=== PATIENT | male | born 1935 | race Caucasian/White ===

== ENCOUNTER 2017-08-03 18:58 | Inpatient (IN) | payer MEDICARE, OTHER ==
[~2017-08-03] VITALS: Ht 165.1 cm; Wt 76.7 kg
[2017-08-03] MEDS ORDERED: Morphine Sulfate 2mg/ml Inj IVP ONE (20:15)
[2017-08-03 20:23] LABS: BASOPHILS % (AUTO) 0.9 % (0.0-2.0); EOSINOPHILS % (AUTO) 2.3 % (0.0-3.0); MEAN CORPUSCULAR HEMOGLOBIN 27.5 PG (27.0-31.0); MEAN CORPUSCULAR HGB CONC 31.1 G/DL (32.0-36.0); MEAN CORPUSCULAR VOLUME 89 FL (80-99); MEAN PLATELET VOLUME 7.6 FL (6.5-10.1); MONOCYTES % (AUTO) 4.1 % (1.0-10.0); NEUTROPHILS % (AUTO) 61.8 % (45.0-75.0); PLATELET COUNT 254 K/UL (150-450); RED BLOOD COUNT 4.09 M/UL (4.70-6.10); RED CELL DISTRIBUTION WIDTH 12.1 % (11.6-14.8); WHITE BLOOD COUNT 13.5 K/UL (4.8-10.8)
[2017-08-03 21:13] LABS: ALANINE AMINOTRANSFERASE 18 U/L (12-78); ALBUMIN/GLOBULIN RATIO 0.8 (1.0-2.7); ANION GAP 8 (5-15); ASPARTATE AMINO TRANSFERASE 17 U/L (15-37); CALCIUM 9.6 MG/DL (8.5-10.1); CARBON DIOXIDE 29 MMOL/L (21-32); CHLORIDE 101 MMOL/L (98-107); CKMB 1.1 NG/ML (0.0-3.6); CREATININE 1.7 MG/DL (0.55-1.30); POTASSIUM 3.4 MMOL/L (3.5-5.1); SODIUM 138 MMOL/L (136-145); TOTAL PROTEIN 7.5 G/DL (6.4-8.2)
--- NOTE | 2017-08-03 21:23 | Emergency Room Report ---
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, known LBBB - which he has on today's ECG Allergies: Coded Allergies: No Known Allergies (Verified Allergy, Unknown, 09/04/07) Patient History Past Medical History: DM Past Surgical History: none Pertinent Family History: none Social History: Denies: smoking, alcohol use, drug use Immunizations: UTD Reviewed Nursing Documentation: PMH: Agreed, PSxH: Agreed Nursing Documentation-PMH Past Medical History: No History, Except For Hx Cardiac Problems: Yes - leaking heart valve, 'minor heart attack' per patient Hx Hypertension: No Hx Pacemaker: No Hx Asthma: No Hx COPD: No Hx Diabetes: Yes Hx Gastrointestinal Problems: Yes - GI bleeding Hx Dialysis: No History Of Psychiatric Problem: No Hx Neurological Problems: No Hx Cerebrovascular Accident: No Hx Seizures: No Review of Systems All Other Systems: negative except mentioned in HPI Physical Exam Vital Signs Date Time Temp Pulse Resp B/P (MAP) Pulse Ox O2 Delivery O2 Flow Rate FiO2 08/03/17 19:01 97.3 73 16 107/59 93 Room Air Sp02 EP Interpretation: reviewed, normal General Appearance: normal inspection, well appearing, no apparent distress, alert, GCS 15, non-toxic Head: normocephalic, atraumatic Eyes: bilateral eye PERRL, bilateral eye EOMI ENT: normal ENT inspection, hearing grossly normal, normal voice Neck: normal inspection, full range of motion, supple, no bony tend Respiratory: normal inspection, lungs clear, normal breath sounds, no respiratory distress, no retraction, no wheezing Cardiovascular #1: regular rate, rhythm, no edema Gastrointestinal: normal inspection, normal bowel sounds, non tender, soft, no guarding, no hernia Genitourinary: no CVA tenderness Musculoskeletal: normal inspection, back normal, normal range of motion, Titi' s Sign negative Neurologic: normal inspection, alert, oriented x3, responsive, guide tour III-XII nml as tested, speech normal Psychiatric: normal inspection, judgement/insight normal, mood/affect normal Skin: normal inspection, normal color, no rash Lymphatic: normal inspection Medical Decision Making Medicare Attestation I Leonel Pineda MD hereby attest that the medical record entry for date of service, 08/03/17 accurately reflects signatures/notations that I made in my capacity as MD when I treated/diagnosed the above listed Medicare beneficiary. I attest that this information is true, accurate and complete to the best of my knowledge. I understand that any falsification, omission, or concealment of material fact may subject me to administrative, civil, or criminal liability. This patient warrants hospital admission for extreme of age and has a condition that cannot be treated as outpatient. Diagnostic Impression: Primary Impression: Chest pain Qualified Codes: R07.9 - Chest pain, unspecified Additional Impressions: GABRIELA (acute kidney injury) 1st degree AV block LBBB (left bundle branch block) ER Course 82YOM with DM with chest pain ECG with known 1st degree block, LBBB Given ASA in ED Labs: No leuks. H&H stable. Troponin <0.056 CXR: unchanged from last CXR in 2006 Dr Dominguez PMD/Glass Worker requested admission to Dr Rehan Bah admit for ACS rule out at 943pm EKG Diagnostic Results Rate: normal, other - 1st degree AV block Rhythm: NSR ST Segments: no acute changes ASA given to the pt in ED: Yes Rhythm Strip Diag. Results EP Interpretation: yes Rate: 70 Rhythm: NSR, no PVC's, no ectopy Chest X-Ray Diagnostic Results Chest X-Ray Diagnostic Results : Chest X-Ray Ordered: Yes # of Views/Limited/Complete: 1 View Indication: Chest Pain EP Interpretation: Yes Interpretation: no consolidation, no effusion, no pneumothorax, no acute cardiopulmonary disease, other - unchanged from 2006 Impression: No acute disease Electronically Signed by: Dr Leonel Pineda MD Last Vital Signs Date Time Temp Pulse Resp B/P (MAP) Pulse Ox O2 Delivery O2 Flow Rate FiO2 08/03/17 19:40 73 16 Room Air 08/03/17 19:01 97.3 107/59 93 Status: improved Disposition: ADMITTED INPATIENT Condition: Serious Referrals: FERMIN GRIFFITHS (PCP) LEONEL PINEDA M.D. Aug 03, 2017 21:23
[2017-08-03] MEDS ORDERED: Albuterol/Ipratropium 3ml neb HHN PRN (22:00)
[2017-08-03] MEDS ORDERED: Enalaprilat 2.5mg/2ml Inj IV PRN (22:00)
[2017-08-03] MEDS ORDERED: Morphine Sulfate 2mg/ml Inj IVP PRN (22:00)
[2017-08-03] MEDS ORDERED: Miralax 17gm pkt ORAL PRN (22:00)
[2017-08-03] MEDS ORDERED: Nitroglycerin Subl 0.4mg tab SL PRN (22:00)
[2017-08-03] MEDS ORDERED: dilTIAZem HCl 25mg/5ml Inj IV PRN (22:00)
[2017-08-03] MEDS ORDERED: Ketorolac 30mg Inj IV PRN (22:00)
[2017-08-03] MEDS ORDERED: LIPITOR80 MG ORAL (22:39)
[2017-08-03] MEDS ORDERED: METFORMIN HCL5000 GM MC (22:39)
[2017-08-03] MEDS ORDERED: DIOVAN80 MG ORAL (22:39)
[2017-08-03] MEDS ORDERED: NORVASC2.5 MG ORAL (22:39)
[2017-08-03 23:25] VITALS: BP 122/89
[2017-08-04] VITALS: BP 146/66
[2017-08-04 04:00] VITALS: BP 137/69
[2017-08-04 07:58] LABS: BASOPHILS % (AUTO) 0.4 % (0.0-2.0); EOSINOPHILS % (AUTO) 0.1 % (0.0-3.0); LYMPHOCYTES % (AUTO) 10.6 % (20.0-45.0); MEAN CORPUSCULAR HGB CONC 33.2 G/DL (32.0-36.0); MEAN CORPUSCULAR VOLUME 87 FL (80-99); MEAN PLATELET VOLUME 8.6 FL (6.5-10.1); MONOCYTES % (AUTO) 7.8 % (1.0-10.0); NEUTROPHILS % (AUTO) 81.1 % (45.0-75.0); PLATELET COUNT 242 K/UL (150-450); RED BLOOD COUNT 3.96 M/UL (4.70-6.10); RED CELL DISTRIBUTION WIDTH 12.2 % (11.6-14.8); WHITE BLOOD COUNT 13.3 K/UL (4.8-10.8)
[2017-08-04 08:00] VITALS: BP 124/58
[2017-08-04 08:11] LABS: PROTHROMBIN TIME 10.4 SEC (9.30-11.50)
[2017-08-04 08:28] LABS: CHOLESTEROL 81 MG/DL (< 200); CHOLESTEROL/HDL RATIO 1.5 (3.3-4.4); CRP QUANT 6.3 mg/dL (0.00-0.90); THYROID STIMULATING HORMONE 1.374 uiU/mL (0.360-3.740)
[2017-08-04] MEDS ORDERED: Pneumococcal Vaccine 25mcg/0.5ml IM ONE (09:00)
[2017-08-04] MEDS: Aspirin Baby 81mg ORAL SCH (10:28)
[2017-08-04] MEDS: Heparin 5000 units/ml inj SUBQ SCH ×2 (10:33→21:53)
[2017-08-04 12:00] VITALS: BP 116/55
--- NOTE | 2017-08-04 12:40 | Diagnostic Imaging Report ---
Indication: Chest pain Comparison: 10/07/2007 A single view chest radiograph was obtained. Findings: The heart is enlarged. There is an azygos fissure noted. Reticular densities are prominent at the lung bases likely atelectasis. No compelling evidence of pneumonia or pulmonary edema. Bones are osteopenic. Impression: Some prominence of the basilar interstitium nonspecific. Cardiomegaly
--- NOTE | 2017-08-04 12:42 | Consultation ---
History of Present Illness General Date patient seen: Aug 04, 2017 Chief Complaint: Chest Pain Present Illness HPI 82 year old male with hx of DM, HTN, came to the ED with c/o chest pain, pt states that he has been having pressure in the sternal region of his chest for the past four hours and that the pain radiates to his back. Pt is A/ox4, vital signs sable and no distress noted. Pt is admitted to telemetry for further work up. Allergies: Coded Allergies: No Known Allergies (Verified Allergy, Unknown, 09/04/07) Medication History Scheduled Amlodipine Besylate (Norvasc), 2.5 MG ORAL DAILY, (Reported) Atorvastatin (Lipitor), 80 MG ORAL BEDTIME, (Reported) Valsartan (Diovan), 80 MG ORAL DAILY, (Reported) Miscellaneous Medications Metformin Hcl (Metformin Hcl), 5,000 GM MC, (Reported) Patient History Healthcare decision maker Resuscitation status Full Code Advanced Directive on File No Past Medical/Surgical History Past Medical/Surgical History: (1) Hypertension (2) Diabetes mellitus Review of Systems All Other Systems: negative except mentioned in HPI Physical Exam General Appearance: WD/WN Lines, tubes and drains: peripheral HEENT: normocephalic, atraumatic Neck: non-tender, normal alignment Respiratory/Chest: chest wall non-tender, lungs clear Breasts: no masses Cardiovascular/Chest: normal rate, regular rhythm Genitourinary/Rectal: normal genital exam Last 24 Hour Vital Signs Date Time Temp Pulse Resp B/P (MAP) Pulse Ox O2 Delivery O2 Flow Rate FiO2 08/04/17 09:47 64 18 Room Air 21 08/04/17 08:00 98.0 69 19 124/58 91 Room Air 08/04/17 08:00 66 08/04/17 04:00 98.2 74 18 137/69 91 Room Air 08/04/17 04:00 91 08/04/17 00:00 97.3 76 18 146/66 93 Room Air 08/03/17 23:25 97.3 88 20 122/89 100 Room Air 08/03/17 23:25 88 20 122/89 100 Room Air 08/03/17 19:40 73 16 Room Air 08/03/17 19:01 97.3 73 16 107/59 93 Room Air Laboratory Tests Test 08/03/17 19:30 08/04/17 06:40 White Blood Count 13.5 K/UL (4.8-10.8) H 13.3 K/UL (4.8-10.8) H Red Blood Count 4.09 M/UL (4.70-6.10) L 3.96 M/UL (4.70-6.10) L Hemoglobin 11.3 G/DL (14.2-18.0) L 11.5 G/DL (14.2-18.0) L Hematocrit 36.2 % (42.0-52.0) L 34.6 % (42.0-52.0) L Mean Corpuscular Volume 89 FL (80-99) 87 FL (80-99) Mean Corpuscular Hemoglobin 27.5 PG (27.0-31.0) 29.0 PG (27.0-31.0) Mean Corpuscular Hemoglobin Concent 31.1 G/DL (32.0-36.0) L 33.2 G/DL (32.0-36.0) Red Cell Distribution Width 12.1 % (11.6-14.8) 12.2 % (11.6-14.8) Platelet Count 254 K/UL (150-450) 242 K/UL (150-450) Mean Platelet Volume 7.6 FL (6.5-10.1) 8.6 FL (6.5-10.1) Neutrophils (%) (Auto) 61.8 % (45.0-75.0) 81.1 % (45.0-75.0) H Lymphocytes (%) (Auto) 31.0 % (20.0-45.0) 10.6 % (20.0-45.0) L Monocytes (%) (Auto) 4.1 % (1.0-10.0) 7.8 % (1.0-10.0) Eosinophils (%) (Auto) 2.3 % (0.0-3.0) 0.1 % (0.0-3.0) Basophils (%) (Auto) 0.9 % (0.0-2.0) 0.4 % (0.0-2.0) Sodium Level 138 MMOL/L (136-145) Potassium Level 3.4 MMOL/L (3.5-5.1) L Chloride Level 101 MMOL/L (98-107) Carbon Dioxide Level 29 MMOL/L (21-32) Anion Gap 8 (5-15) Blood Urea Nitrogen 35 mg/dL (7-18) H Creatinine 1.7 MG/DL (0.55-1.30) H Estimat Glomerular Filtration Rate mL/min (>60) Glucose Level 220 MG/DL (74-106) H Calcium Level 9.6 MG/DL (8.5-10.1) Total Bilirubin 0.5 MG/DL (0.2-1.0) Aspartate Amino Transf (AST/SGOT) 17 U/L (15-37) Alanine Aminotransferase (ALT/SGPT) 18 U/L (12-78) Alkaline Phosphatase 44 U/L (46-116) L Total Creatine Kinase 76 U/L (26-308) Creatine Kinase MB 1.1 NG/ML (0.0-3.6) Creatine Kinase MB Relative Index 1.4 Troponin I 0.017 ng/mL (0.000-0.056) 0.003 ng/mL (0.000-0.056) Pro-B-Type Natriuretic Peptide 449 (0-125) H Total Protein 7.5 G/DL (6.4-8.2) Albumin 3.4 G/DL (3.4-5.0) Globulin 4.1 g/dL Albumin/Globulin Ratio 0.8 (1.0-2.7) L Prothrombin Time 10.4 SEC (9.30-11.50) Prothromb Time International Ratio 1.0 (0.9-1.1) Activated Partial Thromboplast Time 34 SEC (23-33) H C-Reactive Protein, Quantitative 6.3 mg/dL (0.00-0.90) H Triglycerides Level 55 MG/DL (0-200) Cholesterol Level 81 MG/DL (< 200) LDL Cholesterol 24 mg/dL (<100) HDL Cholesterol 54 MG/DL (40-60) Cholesterol/HDL Ratio 1.5 (3.3-4.4) L Thyroid Stimulating Hormone (TSH) 1.374 uiU/mL (0.360-3.740) Height (Feet): 5 Height (Inches): 5.00 Weight (Pounds): 169 Medications Current Medications Medications (Trade) Dose Ordered Sig/Tyrell Route PRN Reason Start Time Stop Time Status Last Admin Dose Admin Acetaminophen (Tylenol) 650 mg Q4H PRN ORAL FEVER 08/03/17 22:00 09/02/17 21:59 Albuterol/ Ipratropium (DuoNeb 0.5-3(2.5)mg/3ml) 3 ml Q4H PRN HHN Shortness of Breath 08/03/17 22:00 08/08/17 21:59 Aspirin (ASA) 162 mg DAILY ORAL 08/04/17 09:00 09/03/17 08:59 08/04/17 10:28 Diltiazem HCl (Cardizem) 10 mg Q1H PRN IV heart rate more than 120, 08/03/17 22:00 09/02/17 21:59 Enalaprilat (Vasotec) 2.5 mg Q6H PRN IV sbp more than 160 08/03/17 22:00 09/02/17 21:59 Heparin Sodium (Porcine) (Heparin 5000 units/ml) 5,000 units EVERY 12 HOURS SUBQ 08/04/17 09:00 09/03/17 08:59 08/04/17 10:33 Ketorolac Tromethamine (Toradol 30mg) 30 mg Q6H PRN IV moderate pain ( 4-6) 08/03/17 22:00 08/08/17 21:59 Morphine Sulfate (Morphine Sulfate) 2 mg Q4H PRN IVP severe Pain (Pain Scale 7-10) 08/03/17 22:00 08/10/17 21:59 Nitroglycerin (Ntg) 0.4 mg Q5M PRN SL Prn Chest Pain 08/03/17 22:00 09/02/17 21:59 Ondansetron HCl (Zofran) 4 mg Q6H PRN IVP Nausea & Vomiting 08/03/17 22:00 09/02/17 21:59 Pneumococcal Polyvalent Vaccine (Pneumovax) 0.5 ml ONCE ONCE IM 08/04/17 09:00 08/04/17 09:01 UNV Polyethylene Glycol (Miralax) 17 gm DAILYPRN PRN ORAL Constipation 08/03/17 22:00 09/02/17 21:59 Temazepam (Restoril) 15 mg HSPRN PRN ORAL Insomnia 08/03/17 22:00 08/10/17 21:59 Assessment/Plan Problem List: (1) ACS (acute coronary syndrome) ICD Codes: I24.9 - Acute ischemic heart disease, unspecified SNOMED: 259782163 (2) ATN (acute tubular necrosis) ICD Codes: N17.0 - Acute kidney failure with tubular necrosis SNOMED: 71075161 (3) Anemia ICD Codes: D64.9 - Anemia, unspecified SNOMED: 202277981 Assessment/Plan serial ekg, troponin echo cardio to see anemia and renal w/u symptomatic treatment. SAMANTHA ABRAMS Aug 04, 2017 12:42
[2017-08-04 13:09] LABS: URIC ACID 7.5 MG/DL (2.6-7.2)
[2017-08-04 13:15] LABS: IRON 54 ug/dL (50-175); LACTATE DEHYDROGENASE 157 U/L (135-225); TOTAL IRON BINDING CAPACITY 297 ug/dL (250-450)
[2017-08-04 14:04] LABS: BAND NEUTROPHILS % (MANUAL) 0 % (0-8); BASOPHILS % (MANUAL) 0 % (0-2); EOSINOPHILS % (MANUAL) 0 % (0-3); LYMPHOCYTES % (MANUAL) 12 % (20-45); NEUTROPHILS % (MANUAL) 79 % (45-75); PLATELET ESTIMATE ADEQUATE; PLATELET MORPHOLOGY NORMAL; TOTAL CELLS COUNTED 100
[2017-08-04 14:05] LABS: PATH BLOOD SMEAR/OMC SEND TO PATHOLOGIST
[2017-08-04 14:07] LABS: RETICULOCYTE COUNT 0.6 % (0.0-2.0)
[2017-08-04 14:14] LABS: ERYTHROCYTE SEDIMENTATION RATE 54 MM/HR (0-30)
[2017-08-04 16:00] VITALS: BP 131/69
--- NOTE | 2017-08-04 17:38 | Infectious Diseases Prog Note ---
Assessment/Plan Problems: (1) CAP (community acquired pneumonia) Assessment & Plan: with interstitial infiltrates, will start ceftriaxon and zithromax empirically (2) Leukocytosis Assessment & Plan: suspect due to pneumonia , will start ceftriaxon and zithromax, and send blood culture (3) Chest pain Assessment & Plan: rule out ACS, cardiology is following (4) GABRIELA (acute kidney injury) Assessment & Plan: rule out dehydration, continue IVF, monitor renal function (5) Diabetes mellitus Assessment & Plan: recommend tight glycemic control, to keep blood glucose, between 80-130 Subjective Allergies: Coded Allergies: No Known Allergies (Verified Allergy, Unknown, 09/04/07) Objective Vital Signs Last 24 Hour Vital Signs Date Time Temp Pulse Resp B/P (MAP) Pulse Ox O2 Delivery O2 Flow Rate FiO2 08/04/17 16:00 97.2 79 20 131/69 91 Room Air 08/04/17 16:00 65 08/04/17 12:00 97.6 66 21 116/55 91 Room Air 08/04/17 12:00 64 08/04/17 09:47 64 18 Room Air 21 08/04/17 08:00 98.0 69 19 124/58 91 Room Air 08/04/17 08:00 66 08/04/17 04:00 98.2 74 18 137/69 91 Room Air 08/04/17 04:00 91 08/04/17 00:00 97.3 76 18 146/66 93 Room Air 08/03/17 23:25 97.3 88 20 122/89 100 Room Air 08/03/17 23:25 88 20 122/89 100 Room Air 08/03/17 19:40 73 16 Room Air 08/03/17 19:01 97.3 73 16 107/59 93 Room Air Height (Feet): 5 Height (Inches): 5.00 Weight (Pounds): 169 Laboratory Tests Test 08/03/17 19:30 08/04/17 06:40 White Blood Count 13.5 K/UL (4.8-10.8) H 13.3 K/UL (4.8-10.8) H Red Blood Count 4.09 M/UL (4.70-6.10) L 3.96 M/UL (4.70-6.10) L Hemoglobin 11.3 G/DL (14.2-18.0) L 11.5 G/DL (14.2-18.0) L Hematocrit 36.2 % (42.0-52.0) L 34.6 % (42.0-52.0) L Mean Corpuscular Volume 89 FL (80-99) 87 FL (80-99) Mean Corpuscular Hemoglobin 27.5 PG (27.0-31.0) 29.0 PG (27.0-31.0) Mean Corpuscular Hemoglobin Concent 31.1 G/DL (32.0-36.0) L 33.2 G/DL (32.0-36.0) Red Cell Distribution Width 12.1 % (11.6-14.8) 12.2 % (11.6-14.8) Platelet Count 254 K/UL (150-450) 242 K/UL (150-450) Mean Platelet Volume 7.6 FL (6.5-10.1) 8.6 FL (6.5-10.1) Neutrophils (%) (Auto) 61.8 % (45.0-75.0) 81.1 % (45.0-75.0) H Lymphocytes (%) (Auto) 31.0 % (20.0-45.0) 10.6 % (20.0-45.0) L Monocytes (%) (Auto) 4.1 % (1.0-10.0) 7.8 % (1.0-10.0) Eosinophils (%) (Auto) 2.3 % (0.0-3.0) 0.1 % (0.0-3.0) Basophils (%) (Auto) 0.9 % (0.0-2.0) 0.4 % (0.0-2.0) Sodium Level 138 MMOL/L (136-145) Potassium Level 3.4 MMOL/L (3.5-5.1) L Chloride Level 101 MMOL/L (98-107) Carbon Dioxide Level 29 MMOL/L (21-32) Anion Gap 8 (5-15) Blood Urea Nitrogen 35 mg/dL (7-18) H Creatinine 1.7 MG/DL (0.55-1.30) H Estimat Glomerular Filtration Rate mL/min (>60) Glucose Level 220 MG/DL (74-106) H Calcium Level 9.6 MG/DL (8.5-10.1) Total Bilirubin 0.5 MG/DL (0.2-1.0) Aspartate Amino Transf (AST/SGOT) 17 U/L (15-37) Alanine Aminotransferase (ALT/SGPT) 18 U/L (12-78) Alkaline Phosphatase 44 U/L (46-116) L Total Creatine Kinase 76 U/L (26-308) 83 U/L (26-308) Creatine Kinase MB 1.1 NG/ML (0.0-3.6) Creatine Kinase MB Relative Index 1.4 Troponin I 0.017 ng/mL (0.000-0.056) 0.003 ng/mL (0.000-0.056) Pro-B-Type Natriuretic Peptide 449 (0-125) H Total Protein 7.5 G/DL (6.4-8.2) Albumin 3.4 G/DL (3.4-5.0) Globulin 4.1 g/dL Albumin/Globulin Ratio 0.8 (1.0-2.7) L Differential Total Cells Counted 100 Neutrophils % (Manual) 79 % (45-75) H Lymphocytes % (Manual) 12 % (20-45) L Monocytes % (Manual) 9 % (1-10) Eosinophils % (Manual) 0 % (0-3) Basophils % (Manual) 0 % (0-2) Band Neutrophils 0 % (0-8) Platelet Estimate Adequate Platelet Morphology Normal Erythrocyte Sedimentation Rate 54 MM/HR (0-30) H Reticulocyte Count 0.6 % (0.0-2.0) Prothrombin Time 10.4 SEC (9.30-11.50) Prothromb Time International Ratio 1.0 (0.9-1.1) Activated Partial Thromboplast Time 34 SEC (23-33) H Uric Acid 7.5 MG/DL (2.6-7.2) H Iron Level 54 ug/dL (50-175) Total Iron Binding Capacity 297 ug/dL (250-450) Percent Iron Saturation 18 % (15-50) Unsaturated Iron Binding 243 ug/dL (112-346) Lactate Dehydrogenase 157 U/L (135-225) C-Reactive Protein, Quantitative 6.3 mg/dL (0.00-0.90) H Triglycerides Level 55 MG/DL (0-200) Cholesterol Level 81 MG/DL (< 200) LDL Cholesterol 24 mg/dL (<100) HDL Cholesterol 54 MG/DL (40-60) Cholesterol/HDL Ratio 1.5 (3.3-4.4) L Carcinoembryonic Antigen Pending Vitamin B12 Level Pending Folate Pending Thyroid Stimulating Hormone (TSH) 1.374 uiU/mL (0.360-3.740) Current Medications Medications (Trade) Dose Ordered Sig/Tyrell Route PRN Reason Start Time Stop Time Status Last Admin Dose Admin Acetaminophen (Tylenol) 650 mg Q4H PRN ORAL FEVER 08/03/17 22:00 09/02/17 21:59 Albuterol/ Ipratropium (DuoNeb 0.5-3(2.5)mg/3ml) 3 ml Q4H PRN HHN Shortness of Breath 08/03/17 22:00 08/08/17 21:59 Aspirin (ASA) 162 mg DAILY ORAL 08/04/17 09:00 09/03/17 08:59 08/04/17 10:28 Diltiazem HCl (Cardizem) 10 mg Q1H PRN IV heart rate more than 120, 08/03/17 22:00 09/02/17 21:59 Enalaprilat (Vasotec) 2.5 mg Q6H PRN IV sbp more than 160 08/03/17 22:00 09/02/17 21:59 Heparin Sodium (Porcine) (Heparin 5000 units/ml) 5,000 units EVERY 12 HOURS SUBQ 08/04/17 09:00 09/03/17 08:59 08/04/17 10:33 Ketorolac Tromethamine (Toradol 30mg) 30 mg Q6H PRN IV moderate pain ( 4-6) 08/03/17 22:00 08/08/17 21:59 Morphine Sulfate (Morphine Sulfate) 2 mg Q4H PRN IVP severe Pain (Pain Scale 7-10) 08/03/17 22:00 08/10/17 21:59 Nitroglycerin (Ntg) 0.4 mg Q5M PRN SL Prn Chest Pain 08/03/17 22:00 09/02/17 21:59 Ondansetron HCl (Zofran) 4 mg Q6H PRN IVP Nausea & Vomiting 08/03/17 22:00 09/02/17 21:59 Polyethylene Glycol (Miralax) 17 gm DAILYPRN PRN ORAL Constipation 08/03/17 22:00 09/02/17 21:59 Temazepam (Restoril) 15 mg HSPRN PRN ORAL Insomnia 08/03/17 22:00 08/10/17 21:59 Madan Harley M.D. Aug 04, 2017 17:38
[2017-08-04] MEDS: Azithromycin 250mg tab ORAL SCH (18:09)
[2017-08-04] MEDS: cefTRIAXone 2 GM in D5W 110 ML IVPB SCH (18:54)
[2017-08-04 20:00] VITALS: BP 119/61
[2017-08-04] MEDS ORDERED: MULTIVITAMINS1 EAC2 ORAL (22:13)
[2017-08-04] MEDS ORDERED: CALCI-CHEW500 MG PO (22:13)
[2017-08-04] MEDS ORDERED: METFORMIN HCL500 M1 ORAL (22:13)
[2017-08-04] MEDS ORDERED: OMEGA 3 1,0001 EACH PO (22:13)
[2017-08-04] MEDS ORDERED: DIOVAN HCT 1601 EACH ORAL (22:13)
[2017-08-04] MEDS ORDERED: NORVASC5 MG ORAL (22:13)
[2017-08-04] MEDS ORDERED: MAGNESIUM250 M2 PO (22:13)
[2017-08-04] MEDS ORDERED: ATORVASTATIN CA20 MG ORAL (22:13)
--- NOTE | 2017-08-04 22:30 | Cardiology Progress Note ---
Assessment/Plan Assessment/Plan The patient is seen and examined, full consult note will be dictated shortly. Objective Last 24 Hour Vital Signs Date Time Temp Pulse Resp B/P (MAP) Pulse Ox O2 Delivery O2 Flow Rate FiO2 08/04/17 21:37 70 20 Room Air 21 08/04/17 20:00 98.1 70 20 119/61 93 Room Air 08/04/17 16:00 97.2 79 20 131/69 91 Room Air 08/04/17 16:00 65 08/04/17 12:00 97.6 66 21 116/55 91 Room Air 08/04/17 12:00 64 08/04/17 09:47 64 18 Room Air 21 08/04/17 08:00 98.0 69 19 124/58 91 Room Air 08/04/17 08:00 66 08/04/17 04:00 98.2 74 18 137/69 91 Room Air 08/04/17 04:00 91 08/04/17 00:00 97.3 76 18 146/66 93 Room Air 08/03/17 23:25 97.3 88 20 122/89 100 Room Air 08/03/17 23:25 88 20 122/89 100 Room Air Intake and Output 08/04/17 08/05/17 19:00 07:00 Intake Total 680 ml Balance 680 ml Intake Oral 580 ml Other 100 ml # Voids 2 Laboratory Tests Test 08/04/17 06:40 White Blood Count 13.3 K/UL (4.8-10.8) H Red Blood Count 3.96 M/UL (4.70-6.10) L Hemoglobin 11.5 G/DL (14.2-18.0) L Hematocrit 34.6 % (42.0-52.0) L Mean Corpuscular Volume 87 FL (80-99) Mean Corpuscular Hemoglobin 29.0 PG (27.0-31.0) Mean Corpuscular Hemoglobin Concent 33.2 G/DL (32.0-36.0) Red Cell Distribution Width 12.2 % (11.6-14.8) Platelet Count 242 K/UL (150-450) Mean Platelet Volume 8.6 FL (6.5-10.1) Neutrophils (%) (Auto) 81.1 % (45.0-75.0) H Lymphocytes (%) (Auto) 10.6 % (20.0-45.0) L Monocytes (%) (Auto) 7.8 % (1.0-10.0) Eosinophils (%) (Auto) 0.1 % (0.0-3.0) Basophils (%) (Auto) 0.4 % (0.0-2.0) Differential Total Cells Counted 100 Neutrophils % (Manual) 79 % (45-75) H Lymphocytes % (Manual) 12 % (20-45) L Monocytes % (Manual) 9 % (1-10) Eosinophils % (Manual) 0 % (0-3) Basophils % (Manual) 0 % (0-2) Band Neutrophils 0 % (0-8) Platelet Estimate Adequate Platelet Morphology Normal Erythrocyte Sedimentation Rate 54 MM/HR (0-30) H Reticulocyte Count 0.6 % (0.0-2.0) Prothrombin Time 10.4 SEC (9.30-11.50) Prothromb Time International Ratio 1.0 (0.9-1.1) Activated Partial Thromboplast Time 34 SEC (23-33) H Uric Acid 7.5 MG/DL (2.6-7.2) H Iron Level 54 ug/dL (50-175) Total Iron Binding Capacity 297 ug/dL (250-450) Percent Iron Saturation 18 % (15-50) Unsaturated Iron Binding 243 ug/dL (112-346) Lactate Dehydrogenase 157 U/L (135-225) Total Creatine Kinase 83 U/L (26-308) Troponin I 0.003 ng/mL (0.000-0.056) C-Reactive Protein, Quantitative 6.3 mg/dL (0.00-0.90) H Triglycerides Level 55 MG/DL (0-200) Cholesterol Level 81 MG/DL (< 200) LDL Cholesterol 24 mg/dL (<100) HDL Cholesterol 54 MG/DL (40-60) Cholesterol/HDL Ratio 1.5 (3.3-4.4) L Carcinoembryonic Antigen Pending Vitamin B12 Level Pending Folate Pending Thyroid Stimulating Hormone (TSH) 1.374 uiU/mL (0.360-3.740) FERMIN GRIFFITHS Aug 04, 2017 22:30
--- NOTE | 2017-08-04 23:45 | Consultation ---
DATE OF CONSULTATION: 08/04/2017 INFECTIOUS DISEASE CONSULTATION CONSULTING PHYSICIAN: Madan Harley M.D. REQUESTING PHYSICIAN: Walter Van D.O. REASON FOR CONSULTATION: Leukocytosis with pneumonia, recommendation for antibiotic therapy. HISTORY OF PRESENT ILLNESS: The patient is an 82-year-old male with past medical history of diabetes, cardiac disease, and GI bleeding, presented to [facility] with chest pain radiating to his shoulders at rest. His chest pain is 8/10, radiates to his shoulder, gets worse with movement and deep breathing, gets better with pain medication and rest. Never had any previous history of chest pain. No trauma to the chest. The patient was found to have significant leukocytosis and interstitial pulmonary infiltration on his chest x-ray suspicious for pneumonia. So, I was consulted by the primary provider for antibiotics treatment and further management. The patient denied any fever or chills. He had a cough with no phlegm. No shortness of breath, but chest pain. No headache or blurry vision. No recent upper respiratory infection. PAST MEDICAL HISTORY: Significant for diabetes, coronary artery disease, heart valve disease, conduction abnormality, and GI bleeding. PAST SURGICAL HISTORY: Negative. ALLERGIES: He has no known drug allergy. MEDICATIONS: The patient is on aspirin, heparin, DuoNeb, nitroglycerin, Tylenol, Toradol, morphine, MiraLAX, Zofran, Restoril, Vasotec and Cardizem. SOCIAL HISTORY: The patient lives with family. Denies using any drugs, tobacco, or alcohol. FAMILY HISTORY: Not contributory. REVIEW OF SYSTEMS: Fourteen points of system review were all negative apart from the one I mentioned above in my H and P. PHYSICAL EXAMINATION: VITAL SIGNS: Temperature 97.7 degrees, pulse 64, respirations 21, blood pressure 116/65, and saturation 91% on room air. GENERAL: An elderly male, lying in bed, awake, alert, and not in distress. HEENT: Normocephalic and atraumatic. Pupils are reactive to light. Moist oral mucosa. No exudate. NECK: Supple. No lymphadenopathy. CARDIOVASCULAR: Regular rate and rhythm. No murmur. LUNGS: He had crackles. Diminished breathing sounds at the bases. Normal breathing effort. ABDOMEN: Soft, nontender, and nondistended. Positive bowel sounds. No hepatosplenomegaly or ascites. EXTREMITIES: No edema or cyanosis. SKIN: No rash. No hives. LABORATORY AND DIAGNOSTIC DATA: Labs showed white count of 13.3, hemoglobin of 11.5, and platelet count of 242,000. Sedimentation rate of 54. BUN of 35 and creatinine 1.7. AST of 17. Imaging, chest x-ray showed prominence of the basilar interstitium, cardiomegaly, reticular densities prominent at the lung bases. ASSESSMENT AND RECOMMENDATION: 1. Community-acquired pneumonia with interstitial infiltration. We will start the patient empirically on ceftriaxone and Zithromax. Monitor his chest x-ray. 2. Leukocytosis, suspect due to pneumonia. We will start ceftriaxone and Zithromax and send blood culture to rule out sepsis. 3. Chest pain, rule out acute coronary syndrome. Cardiology is following. 4. Acute renal failure, rule out dehydration related. Continue fluid. Monitor renal function. 5. Diabetes. Recommend tight glycemic control to keep blood glucose between 80 to 130. Thank you for the consult. Madan Harley M.D. DR: VAN JOB#: [id number] CC:
[2017-08-05] VITALS: BP 149/73
--- NOTE | 2017-08-05 | History and Physical Report ---
DATE OF ADMISSION: 08/03/2017 TIME SEEN: At 2 p.m. ATTENDING PHYSICIAN: Walter Van D.O. CONSULTANTS: 1. Franc Coleman M.D. 2. Garrett Jacobs M.D. 3. Tatiana Milligan M.D. CHIEF COMPLAINT: Chest pain, weakness, and dizziness. BRIEF HISTORY: This is an 82-year-old male who lives at home and presents with substernal chest pain, radiation to bilateral shoulder, slight dizziness, and weak. No shortness of breath. The patient came to the [facility] and diagnosed with chest pain, left bundle-branch block, and first-degree AV block. The patient was admitted to telemetry for further care. Currently, feeling little bit better in bed, no complaints. PAST MEDICAL HISTORY: Includes diabetes type 2, ATN, left bundle-branch block, hypertension, and anemia. PAST SURGICAL HISTORY: None. MEDICATIONS: Include aspirin, heparin, nitroglycerin, Tylenol, Toradol, morphine, MiraLAX, Zofran, Restoril, and Vasotec. ALLERGIES: Denies. SOCIAL HISTORY: No smoking, no alcohol, and no intravenous drug abuse. FAMILY HISTORY: Noncontributory. REVIEW OF SYSTEMS: Slight chest pain. Slight shortness of breath. No nausea, vomiting, or diarrhea. PHYSICAL EXAMINATION: GENERAL: Calm in bed, oriented x3, and in no acute distress. VITAL SIGNS: Showed temperature 97, pulse 64, respirations 21, and blood pressure 116/55. CARDIOVASCULAR SYSTEM: No murmur. LUNGS: Distant and clear. ABDOMEN: Bowel sounds positive. Nontender and nondistended. EXTREMITIES: No cyanosis, clubbing, or edema. NEUROLOGIC: The patient moves all extremities. Slightly weak. LABORATORY DATA: Laboratories at this time show white count 13, hemoglobin and hematocrit 11.5/34, and platelets 242,000. 7.5. Troponin 0.03. INR 1.0 and PTT 34. ASSESSMENT: 1. Chest pain. 2. Left bundle-branch block. 3. Hypokalemia. 4. Slight dizziness. 5. Leukocytosis. 6. Hypertension. 7. Anemia. 8. Acute tubular necrosis. PLAN: 1. Continue premedications. 2. Troponin q.8 h. x3. 3. O2 and pulmonary treatment. 4. Antibiotics per infectious diseases. 5. Resume home medications. 6. Blood pressure and blood sugar control. 7. OT, PT, and dietary evaluation. 8. CBC and BMP in the morning. 9. Dr. Coleman, Dr. Jacobs, Dr. Milligan to consult. 10. We will continue to follow this patient. Walter Van D.O. DR: AUDREY JOB#: [id number] CC:
[2017-08-05 02:47] LABS: FOLIC ACID 72.2 NG/ML (3.1-17.5)
[2017-08-05 04:00] VITALS: BP 133/71
[2017-08-05 08:00] VITALS: BP 124/78
[2017-08-05] MEDS: Aspirin Baby 81mg ORAL SCH (08:49)
[2017-08-05] MEDS: Azithromycin 250mg tab ORAL SCH (08:50)
[2017-08-05] MEDS: Heparin 5000 units/ml inj SUBQ SCH ×2 (08:55→21:56)
--- NOTE | 2017-08-05 10:38 | General Progress Note ---
Assessment/Plan Problem List: (1) LBBB (left bundle branch block) ICD Codes: I44.7 - Left bundle-branch block, unspecified SNOMED: 75081496 (2) Chest pain ICD Codes: R07.9 - Chest pain, unspecified SNOMED: 53958019 Qualifiers: Qualified Codes: R07.9 - Chest pain, unspecified (3) GABRIELA (acute kidney injury) ICD Codes: N17.9 - Acute kidney failure, unspecified SNOMED: 05487009 (4) 1st degree AV block ICD Codes: I44.0 - Atrioventricular block, first degree SNOMED: 900159878 (5) Diabetes mellitus ICD Codes: E11.9 - Type 2 diabetes mellitus without complications SNOMED: 93533749 (6) Hypertension ICD Codes: I10 - Essential (primary) hypertension SNOMED: 24600079 (7) Anemia ICD Codes: D64.9 - Anemia, unspecified SNOMED: 232981195 (8) ATN (acute tubular necrosis) ICD Codes: N17.0 - Acute kidney failure with tubular necrosis SNOMED: 10741799 (9) ACS (acute coronary syndrome) ICD Codes: I24.9 - Acute ischemic heart disease, unspecified SNOMED: 428130382 (10) Leukocytosis ICD Codes: D72.829 - Elevated white blood cell count, unspecified SNOMED: 323486275, 742215983 (11) CAP (community acquired pneumonia) ICD Codes: J18.9 - Pneumonia, unspecified organism SNOMED: 841107319 Status: stable, progressing, tolerating diet Assessment/Plan ot pt diet cardio eval cbc bmp am Subjective Constitutional: Reports: weakness Allergies: Coded Allergies: No Known Allergies (Verified Allergy, Unknown, 09/04/07) All Systems: reviewed and negative except above Subjective sleepy in bed Objective Last 24 Hour Vital Signs Date Time Temp Pulse Resp B/P (MAP) Pulse Ox O2 Delivery O2 Flow Rate FiO2 08/05/17 10:33 68 08/05/17 08:00 97.5 68 20 124/78 99 Room Air 08/05/17 04:00 97.0 80 20 133/71 88 Room Air 08/05/17 04:00 78 08/05/17 00:00 78 08/05/17 00:00 98.1 80 22 149/73 90 Room Air 08/04/17 21:37 70 20 Room Air 21 08/04/17 20:00 98.1 70 20 119/61 93 Room Air 08/04/17 20:00 74 08/04/17 16:00 97.2 79 20 131/69 91 Room Air 08/04/17 16:00 65 08/04/17 12:00 97.6 66 21 116/55 91 Room Air 08/04/17 12:00 64 Height (Feet): 5 Height (Inches): 5.00 Weight (Pounds): 169 General Appearance: lethargic EENT: normal ENT inspection Neck: normal alignment Cardiovascular: normal peripheral pulses, normal rate, regular rhythm Respiratory/Chest: chest wall non-tender, lungs clear, normal breath sounds Abdomen: normal bowel sounds, non tender, soft Extremities: normal inspection Edema: no edema noted Arm (L), no edema noted Arm (R), no edema noted Leg (L), no edema noted Leg (R), no edema noted Pedal (L), no edema noted Pedal (R), no edema noted Generalized Neurologic: responsive, motor weakness Skin: normal pigmentation, warm/dry RYAN ARMAS Aug 05, 2017 10:38
[2017-08-05 12:00] VITALS: BP 104/58
--- NOTE | 2017-08-05 13:48 | Pulmonology Progress Note ---
Assessment/Plan Assessment/Plan ASSESSMENT chest pain r/o ACS CAP LBBB ( chronic) 1 st degree AV block ( chronic) DM GABRIELA likely on CKD anemia leukocytosis hx of GI bleeding PLAN OF CARE tele serial troponin x 2 negative EG no acute ischemic changes, thus r/o for acute OR cardio follows on ASA lipid panel stable further need for workup -per cardio discretion O2 HHN prn pulse oximetry stable on RA abx, ID follows BS management with SS of insulin,PfL0x-8.5 HH remains stable, monitor, no evidence of GI bleeding DVT GI prophayxlsi case discussed and evaluated by supervising physician Subjective Allergies: Coded Allergies: No Known Allergies (Verified Allergy, Unknown, 09/04/07) Subjective currently denies chest pain, SOB SR on tele Objective Last 24 Hour Vital Signs Date Time Temp Pulse Resp B/P (MAP) Pulse Ox O2 Delivery O2 Flow Rate FiO2 08/05/17 12:00 97.2 77 21 104/58 92 Room Air 08/05/17 10:33 68 08/05/17 08:00 97.5 68 20 124/78 99 Room Air 08/05/17 04:00 97.0 80 20 133/71 88 Room Air 08/05/17 04:00 78 08/05/17 00:00 78 08/05/17 00:00 98.1 80 22 149/73 90 Room Air 08/04/17 21:37 70 20 Room Air 21 08/04/17 20:00 98.1 70 20 119/61 93 Room Air 08/04/17 20:00 74 08/04/17 16:00 97.2 79 20 131/69 91 Room Air 08/04/17 16:00 65 General Appearance: no acute distress HEENT: normocephalic, atraumatic, anicteric, mucous membranes moist, PERRL Respiratory/Chest: lungs clear, normal breath sounds, no accessory muscle use Cardiovascular: normal rate, regular rhythm, no JVD Abdomen: normal bowel sounds, soft, non tender, non distended Extremities: no edema, pedal pulses normal Neurologic/Psychiatric: no motor/sensory deficits, alert, responsive Current Medications Medications (Trade) Dose Ordered Sig/Tyrell Route PRN Reason Start Time Stop Time Status Last Admin Dose Admin Acetaminophen (Tylenol) 650 mg Q4H PRN ORAL FEVER 08/03/17 22:00 09/02/17 21:59 Albuterol/ Ipratropium (DuoNeb 0.5-3(2.5)mg/3ml) 3 ml Q4H PRN HHN Shortness of Breath 08/03/17 22:00 08/08/17 21:59 Aspirin (ASA) 162 mg DAILY ORAL 08/04/17 09:00 09/03/17 08:59 08/05/17 08:49 Azithromycin (Zithromax) 250 mg DAILY ORAL 08/04/17 18:30 08/11/17 18:29 08/05/17 08:50 Ceftriaxone Sodium 2 gm/ Dextrose 110 ml @ 220 mls/hr Q24H IVPB 08/04/17 18:30 08/11/17 18:29 08/04/17 18:54 Dextrose (Dextrose 50%) STAT PRN IV Hypoglycemia 08/04/17 21:15 09/03/17 21:14 Diltiazem HCl (Cardizem) 10 mg Q1H PRN IV heart rate more than 120, 08/03/17 22:00 09/02/17 21:59 Enalaprilat (Vasotec) 2.5 mg Q6H PRN IV sbp more than 160 08/03/17 22:00 09/02/17 21:59 Heparin Sodium (Porcine) (Heparin 5000 units/ml) 5,000 units EVERY 12 HOURS SUBQ 08/04/17 09:00 09/03/17 08:59 08/05/17 08:55 Insulin Aspart (NovoLOG) BEFORE MEALS AND HS SUBQ 08/05/17 22:00 09/04/17 21:59 Ketorolac Tromethamine (Toradol 30mg) 30 mg Q6H PRN IV moderate pain ( 4-6) 08/03/17 22:00 08/08/17 21:59 08/05/17 06:39 Morphine Sulfate (Morphine Sulfate) 2 mg Q4H PRN IVP severe Pain (Pain Scale 7-10) 08/03/17 22:00 08/10/17 21:59 Nitroglycerin (Ntg) 0.4 mg Q5M PRN SL Prn Chest Pain 08/03/17 22:00 09/02/17 21:59 Ondansetron HCl (Zofran) 4 mg Q6H PRN IVP Nausea & Vomiting 08/03/17 22:00 09/02/17 21:59 Polyethylene Glycol (Miralax) 17 gm DAILYPRN PRN ORAL Constipation 08/03/17 22:00 09/02/17 21:59 Ranitidine HCl (Zantac) 150 mg BEDTIME ORAL 08/05/17 22:00 09/04/17 21:59 Temazepam (Restoril) 15 mg HSPRN PRN ORAL Insomnia 08/03/17 22:00 08/10/17 21:59 Kalyan [facility] The Criminally InsaneDiya Motley NP Aug 05, 2017 13:48
--- NOTE | 2017-08-05 14:53 | Infectious Diseases Prog Note ---
Assessment/Plan Problems: (1) CAP (community acquired pneumonia) Assessment & Plan: with interstitial infiltrates, continue ceftriaxon and zithromax empirically for 5-7 days , monitor CXR (2) Leukocytosis Assessment & Plan: suspect due to pneumonia , on ceftriaxon and zithromax, await blood culture (3) Chest pain Assessment & Plan: rule out ACS, cardiology is following (4) GABRIELA (acute kidney injury) Assessment & Plan: rule out dehydration, continue IVF, monitor renal function (5) Diabetes mellitus Assessment & Plan: recommend tight glycemic control, to keep blood glucose, between 80-130 Subjective Constitutional: Reports: no symptoms HEENT: Reports: no symptoms Respiratory: Reports: dry cough Breasts: Reports: no symptoms Cardiovascular: Reports: chest pain Gastrointestinal/Abdominal: Reports: no symptoms Genitourinary: Reports: no symptoms Neurologic: Reports: no symptoms Psychiatric: Reports: no symptoms Skin: Reports: no symptoms Endocrine: Reports: no symptoms Hematologic: Reports: no symptoms Musculoskeletal: Reports: no symptoms Allergies: Coded Allergies: No Known Allergies (Verified Allergy, Unknown, 09/04/07) Objective Vital Signs Last 24 Hour Vital Signs Date Time Temp Pulse Resp B/P (MAP) Pulse Ox O2 Delivery O2 Flow Rate FiO2 08/05/17 12:00 77 08/05/17 12:00 97.2 77 21 104/58 92 Room Air 08/05/17 10:33 68 08/05/17 08:00 97.5 68 20 124/78 99 Room Air 08/05/17 04:00 97.0 80 20 133/71 88 Room Air 08/05/17 04:00 78 08/05/17 00:00 78 08/05/17 00:00 98.1 80 22 149/73 90 Room Air 08/04/17 21:37 70 20 Room Air 21 08/04/17 20:00 98.1 70 20 119/61 93 Room Air 08/04/17 20:00 74 08/04/17 16:00 97.2 79 20 131/69 91 Room Air 08/04/17 16:00 65 Height (Feet): 5 Height (Inches): 5.00 Weight (Pounds): 169 General Appearance: WD/WN, no acute distress HEENT: normocephalic, atraumatic, anicteric, mucous membranes moist, PERRL, EOMI, pharynx normal, supple, no JVD Respiratory/Chest: chest wall non-tender, normal breath sounds, no respiratory distress, no accessory muscle use, decreased breath sounds, crackles/rales Cardiovascular: normal peripheral pulses, normal rate, regular rhythm, no gallop/murmur, no JVD Abdomen: normal bowel sounds, soft, non tender, no organomegaly, non distended , no mass, no scars Extremities: no cyanosis, no clubbing Skin: no rash, no lesions, no ulcers Neurologic/Psychiatric: alert, oriented x 3 Lymphatic: no neck adenopathy, no groin adenopathy Musculoskeletal: normal muscle bulk Current Medications Medications (Trade) Dose Ordered Sig/Tyrell Route PRN Reason Start Time Stop Time Status Last Admin Dose Admin Acetaminophen (Tylenol) 650 mg Q4H PRN ORAL FEVER 08/03/17 22:00 09/02/17 21:59 Albuterol/ Ipratropium (DuoNeb 0.5-3(2.5)mg/3ml) 3 ml Q4H PRN HHN Shortness of Breath 08/03/17 22:00 08/08/17 21:59 Aspirin (ASA) 162 mg DAILY ORAL 08/04/17 09:00 09/03/17 08:59 08/05/17 08:49 Azithromycin (Zithromax) 250 mg DAILY ORAL 08/04/17 18:30 08/11/17 18:29 08/05/17 08:50 Ceftriaxone Sodium 2 gm/ Dextrose 110 ml @ 220 mls/hr Q24H IVPB 08/04/17 18:30 08/11/17 18:29 08/04/17 18:54 Dextrose (Dextrose 50%) STAT PRN IV Hypoglycemia 08/04/17 21:15 09/03/17 21:14 Diltiazem HCl (Cardizem) 10 mg Q1H PRN IV heart rate more than 120, 08/03/17 22:00 09/02/17 21:59 Enalaprilat (Vasotec) 2.5 mg Q6H PRN IV sbp more than 160 08/03/17 22:00 09/02/17 21:59 Heparin Sodium (Porcine) (Heparin 5000 units/ml) 5,000 units EVERY 12 HOURS SUBQ 08/04/17 09:00 09/03/17 08:59 08/05/17 08:55 Insulin Aspart (NovoLOG) BEFORE MEALS AND HS SUBQ 08/05/17 22:00 09/04/17 21:59 Ketorolac Tromethamine (Toradol 30mg) 30 mg Q6H PRN IV moderate pain ( 4-6) 08/03/17 22:00 08/08/17 21:59 08/05/17 06:39 Morphine Sulfate (Morphine Sulfate) 2 mg Q4H PRN IVP severe Pain (Pain Scale 7-10) 08/03/17 22:00 08/10/17 21:59 Nitroglycerin (Ntg) 0.4 mg Q5M PRN SL Prn Chest Pain 08/03/17 22:00 09/02/17 21:59 Ondansetron HCl (Zofran) 4 mg Q6H PRN IVP Nausea & Vomiting 08/03/17 22:00 09/02/17 21:59 Polyethylene Glycol (Miralax) 17 gm DAILYPRN PRN ORAL Constipation 08/03/17 22:00 09/02/17 21:59 Ranitidine HCl (Zantac) 150 mg BEDTIME ORAL 08/05/17 22:00 09/04/17 21:59 Temazepam (Restoril) 15 mg HSPRN PRN ORAL Insomnia 08/03/17 22:00 08/10/17 21:59 Madan Harley M.D. Aug 05, 2017 14:53
[2017-08-05 16:00] VITALS: BP 113/57
[2017-08-05] MEDS ORDERED: NS 275ml ONE (16:35)
[2017-08-05] MEDS ORDERED: Tubing IV Secondary IV ONE (16:35)
[2017-08-05] MEDS: metFORMIN 500mg tab ORAL SCH (17:25)
[2017-08-05] MEDS: cefTRIAXone 2 GM in D5W 110 ML IVPB SCH (17:29)
--- NOTE | 2017-08-05 19:06 | Cardiology Progress Note ---
Assessment/Plan Assessment/Plan 1. Non-cardiac chest pain, worse with movement and breathing, likely due to CAP , AMI is ruled out, no further ischemic work up indicated. 2. Moderate AR, repeat echo 3. Possible SSS, there was a short pause for 2.3 seconds as well as a short run of SVT. The patient is asymptomatic, will continue cardiac monitoring. 4. CAP 5. DM 6. Anemia Subjective Subjective An episode of sinus pause for 2.3 seconds, also an episode of SVT likely atrial flutter. Currently SR with LBBB. Feeling better, no CP or SOB at this time. Objective Last 24 Hour Vital Signs Date Time Temp Pulse Resp B/P (MAP) Pulse Ox O2 Delivery O2 Flow Rate FiO2 08/05/17 17:25 79 113/57 08/05/17 16:58 79 08/05/17 16:00 97.8 79 21 113/57 91 Room Air 08/05/17 12:00 77 08/05/17 12:00 97.2 77 21 104/58 92 Room Air 08/05/17 10:33 68 08/05/17 08:00 97.5 68 20 124/78 99 Room Air 08/05/17 07:30 68 20 Room Air 21 08/05/17 04:00 97.0 80 20 133/71 88 Room Air 08/05/17 04:00 78 08/05/17 00:00 78 08/05/17 00:00 98.1 80 22 149/73 90 Room Air 08/04/17 21:37 70 20 Room Air 21 08/04/17 20:00 98.1 70 20 119/61 93 Room Air 08/04/17 20:00 74 Intake and Output 08/05/17 08/06/17 19:00 07:00 Intake Total 2100 ml Balance 2100 ml Intake Oral 600 ml Other 1500 ml # Voids 2 Objective HEENT: Normocephalic and atraumatic. Pupils are reactive to light. conjunctival pallor, Moist oral mucosa. NECK: No JVD, no carotid bruit, carotid upstroke 2+ B/L CARDIOVASCULAR: Regular rate and rhythm. Normal S1S2, 2/6 EDM at right 2nd ICS LUNGS: Bibasilar crackles. Diminished breathing sounds at the bases. ABDOMEN: Soft, nontender, and nondistended. Positive bowel sounds. No hepatosplenomegaly or ascites. EXTREMITIES: No edema or cyanosis. FERMIN GRIFFITHS Aug 05, 2017 19:06
[2017-08-05 20:33] VITALS: BP 117/58
[2017-08-05] MEDS: MAGNESIUM 250MG ORAL SCH (21:30)
[2017-08-05] MEDS: VALSARTAN ORAL SCH (21:30)
[2017-08-05] MEDS: HCTZ ORAL SCH (21:30)
[2017-08-05] MEDS: NovoLOG Insulin Flexpen SUBQ SCH (22:00)
--- NOTE | 2017-08-05 22:15 | Consultation ---
DATE OF CONSULTATION: 08/04/2017 CARDIOLOGY CONSULTATION REFERRING PHYSICIAN: Walter Van D.O. REASON FOR CONSULTATION: Management of chest pain. HISTORY OF PRESENT ILLNESS: The patient is a very pleasant 82-year-old gentleman, who presents to the hospital with chest pain radiating to the shoulder while at rest, worse with movement. He has history of diabetes mellitus and moderate aortic regurgitation according to the last 2D echocardiography. He also known to have left bundle-branch block with first-degree AV block. In the emergency department, a 12-lead electrocardiogram could not assess the ST-segment changes due to underlying left bundle branch block. The first troponin I level was also normal. The patient was admitted to telemetry for further evaluation and assessment. At the time of my evaluation, the patient did not have any chest pain. Further evaluation showed presence of leukocytosis with left shift raising the question of possible pneumonia. Chest x-ray in the emergency department showed basilar interstitial findings, which was mainly suggestive of atelectasis, but there was no compelling evidence of pneumonia. PAST MEDICAL HISTORY: 1. History of moderate aortic regurgitation. 2. History of GI bleed in the past. 3. History of anemia. 4. History of hypertension. 5. History of diabetes mellitus. 6. History of left bundle branch block. PAST SURGICAL HISTORY: None. MEDICATIONS: At home includes amlodipine 5 mg p.o. daily, atorvastatin 20 mg p.o. nightly, calcium carbonate 500 mg p.o. daily, magnesium oxide 250 mg daily, metformin 500 mg twice daily, multivitamin one tablet p.o. daily, omega-3 fatty acids one tablet twice daily, and valsartan and hydrochlorothiazide 160/12.5 mg one tablet daily. ALLERGIES: No known drug allergies. SOCIAL HISTORY: Lives alone. Denies any tobacco, alcohol, or illicit drug use. FAMILY HISTORY: No premature coronary artery disease in first-degree relative. REVIEW OF SYSTEMS: HEENT: Denies any headache, diplopia, or blurred vision. CONSTITUTIONAL: Denies any fever, chills, night sweats, or weight loss. CARDIOVASCULAR: He has chest pain, which is more with movement. Denies any shortness of breath. Denies any PND, orthopnea, leg swelling, syncope, or palpitation. PULMONARY: Denies any cough, hemoptysis, or wheezing. GASTROINTESTINAL: Denies any nausea, vomiting, diarrhea, constipation, abdominal pain, or GI bleed. GENITOURINARY: Denies any hematuria, dysuria, or incontinence. NEUROLOGY: Denies any motor dysfunction, sensory deficit, or altered speech. PHYSICAL EXAMINATION: VITAL SIGNS: Blood pressure is 107/59, respirations 16, pulse of 73, temperature 97.3 degrees Fahrenheit, and O2 saturation 92% on room air. GENERAL: The patient is a very pleasant, 82-year-old gentleman, in no apparent respiratory distress. Alert and oriented x4. HEENT: Atraumatic and normocephalic. ENT: Pupils are equal, round, and reactive to light and accommodation. Extraocular muscles intact. NECK: JVP less than 5 cm. No carotid bruits. Carotid upstrokes 2+ bilaterally. CARDIOVASCULAR: Normal S1 and S2. Regular rate and rhythm. There is 2/6 early diastolic murmur at the upper right second intercostal space. PMI is at fourth intercostal space at the midclavicular line. LUNGS: Clear to auscultation bilaterally. ABDOMEN: Soft, nontender, and nondistended. No hepatosplenomegaly. Positive bowel sounds. EXTREMITIES: No evidence of edema, clubbing, or cyanosis. LABORATORY FINDINGS: WBC 13.5, hemoglobin 11.3, hematocrit 36.2, and platelet count 254,000. Sodium is 138, potassium is 3.4, chloride 101, bicarbonate 29, BUN of 35, creatinine of 1.7, and glucose is 220. Troponin I x2 negative. ProBNP was 449. INR was 1.0. Chest x-ray showed some atelectasis in the basilar portion. Otherwise, no acute cardiopulmonary disease. A 12-lead electrocardiogram showed sinus rhythm with rate of 170, first-degree AV block, and left bundle branch block, which is old. ASSESSMENT AND PLAN: The patient is a very pleasant, 82-year-old gentleman, seen in Cardiology consultation. 1. Chest pain appears to be noncardiac as the history is suggestive of increased chest pain with movement. In view of the leukocytosis, the patient may have been contracted pneumonia. Infectious Disease has already started antibiotic therapy. There is also some element of acute kidney injury. We will continue monitoring the creatinine. No ischemic workup is warranted at this time in view of the characters of chest pain. Acute myocardial infarction is ruled out. 2. History of moderate aortic regurgitation per 2D echocardiography in recent months. 3. History of left bundle branch block with first-degree arteriovenous block. I will continue to monitor the patient's rhythm during this hospitalization. 4. History of diabetes mellitus. We will continue with aspirin and statin in this patient. I would like to thank, Dr. Van, for the courtesy of this consultation. Garrett Jacobs M.D. DR: Razia JOB#: [id number] CC:
[2017-08-06 00:50] VITALS: BP 134/65
[2017-08-06 04:30] VITALS: BP 125/65
[2017-08-06] MEDS: NovoLOG Insulin Flexpen SUBQ SCH ×2 (06:30→11:30)
[2017-08-06 08:19] VITALS: BP 141/59
[2017-08-06 08:23] LABS: OTHERS PATHOLOGIST COMMENT
[2017-08-06] MEDS: Aspirin Baby 81mg ORAL SCH (08:28)
[2017-08-06] MEDS: metFORMIN 500mg tab ORAL SCH (08:29)
[2017-08-06] MEDS: Azithromycin 250mg tab ORAL SCH (08:30)
[2017-08-06] MEDS: MAGNESIUM 250MG ORAL SCH (08:33)
[2017-08-06] MEDS: VALSARTAN ORAL SCH (08:33)
[2017-08-06] MEDS: HCTZ ORAL SCH (08:33)
[2017-08-06] MEDS: Heparin 5000 units/ml inj SUBQ SCH (08:41)
[2017-08-06 08:54] LABS: BASOPHILS % (AUTO) 0.5 % (0.0-2.0); EOSINOPHILS % (AUTO) 1.3 % (0.0-3.0); LYMPHOCYTES % (AUTO) 21.7 % (20.0-45.0); MEAN CORPUSCULAR HEMOGLOBIN 28.6 PG (27.0-31.0); MEAN CORPUSCULAR HGB CONC 33.1 G/DL (32.0-36.0); MEAN CORPUSCULAR VOLUME 87 FL (80-99); MEAN PLATELET VOLUME 8.9 FL (6.5-10.1); MONOCYTES % (AUTO) 5.5 % (1.0-10.0); NEUTROPHILS % (AUTO) 70.9 % (45.0-75.0); PLATELET COUNT 333 K/UL (150-450); RED BLOOD COUNT 4.48 M/UL (4.70-6.10); RED CELL DISTRIBUTION WIDTH 12.4 % (11.6-14.8); WHITE BLOOD COUNT 13.1 K/UL (4.8-10.8)
[2017-08-06 09:05] LABS: ANION GAP 9 (5-15); CALCIUM 10.1 MG/DL (8.5-10.1); CARBON DIOXIDE 29 MMOL/L (21-32); CHLORIDE 98 MMOL/L (98-107); CREATININE 2.1 MG/DL (0.55-1.30); POTASSIUM 4.7 MMOL/L (3.5-5.1); SODIUM 136 MMOL/L (136-145)
[2017-08-06 10:16] LABS: HEMOGLOBIN A1C 7.5 % (4.3-6.0)
--- NOTE | 2017-08-06 10:30 | Pulmonology Progress Note ---
Assessment/Plan Assessment/Plan ASSESSMENT noncardiac chest pain CAP LBBB ( chronic) 1 st degree AV block ( chronic) DM GABRIELA vs CRI anemia leukocytosis possible PNA hx of GI bleeding PLAN OF CARE tele serial troponin x 2 negative ECG no acute ischemic changes, thus r/o for acute TX cardio follows on ASA lipid panel stable per cardio no need for ischemic work up, chest pain noncardiac, possibly related to presumed PNA declined ECHO O2 HHN prn pulse oximetry stable on RA BS management with SS of insulin, HH remains stable, monitor, no evidence of GI bleeding abx for presumed PNA. ID follows DVT GI prophylaxis can be dc home from pulmonary standpoint on oral abx as per ID discussed with ID ok for dc on oral levaquin discussed with PMD home with HH [facility] fup with PMD case discussed and evaluated by supervising physician Subjective Allergies: Coded Allergies: No Known Allergies (Verified Allergy, Unknown, 09/04/07) Subjective currently denies chest pain, SOB SR on tele no cough, no congestion, Objective Last 24 Hour Vital Signs Date Time Temp Pulse Resp B/P (MAP) Pulse Ox O2 Delivery O2 Flow Rate FiO2 08/06/17 08:30 96 141/59 08/06/17 08:19 96.9 96 20 141/59 93 Room Air 08/06/17 08:00 91 08/06/17 04:30 97.2 91 22 125/65 95 Nasal Cannula 2.0 08/06/17 04:00 75 08/06/17 00:50 97.2 78 20 134/65 92 Room Air 08/06/17 00:00 78 08/05/17 20:33 97.4 78 20 117/58 93 Room Air 08/05/17 20:00 85 08/05/17 19:24 71 18 Room Air 21 08/05/17 17:25 79 113/57 08/05/17 16:58 79 08/05/17 16:00 97.8 79 21 113/57 91 Room Air 08/05/17 12:00 77 08/05/17 12:00 97.2 77 21 104/58 92 Room Air 08/05/17 10:33 68 Intake and Output 08/06/17 08/07/17 19:00 07:00 Intake Total 250 ml Balance 250 ml Intake Oral 250 ml # Voids 1 Objective General Appearance: no acute distress HEENT: normocephalic, atraumatic, anicteric, mucous membranes moist, PERRL Respiratory/Chest: lungs clear, normal breath sounds, no accessory muscle use Cardiovascular: normal rate, regular rhythm, no JVD Abdomen: normal bowel sounds, soft, non tender, non distended Extremities: no edema, pedal pulses normal Neurologic/Psychiatric: no motor/sensory deficits, alert, responsive Laboratory Tests 08/06/17 06:55: White Blood Count 13.1H, Red Blood Count 4.48L, Hemoglobin 12.8L, Hematocrit 38.9L, Mean Corpuscular Volume 87, Mean Corpuscular Hemoglobin 28.6, Mean Corpuscular Hemoglobin Concent 33.1, Red Cell Distribution Width 12.4, Platelet Count 333, Mean Platelet Volume 8.9, Neutrophils (%) (Auto) 70.9, Lymphocytes (% ) (Auto) 21.7, Monocytes (%) (Auto) 5.5, Eosinophils (%) (Auto) 1.3, Basophils ( %) (Auto) 0.5, Sodium Level 136, Potassium Level 4.7, Chloride Level 98, Carbon Dioxide Level 29, Anion Gap 9, Blood Urea Nitrogen 47H, Creatinine 2.1H, Estimat Glomerular Filtration Rate , Glucose Level 113H, Hemoglobin A1c 7.5H, Calcium Level 10.1 Current Medications Medications (Trade) Dose Ordered Sig/Tyrell Route PRN Reason Start Time Stop Time Status Last Admin Dose Admin Acetaminophen (Tylenol) 650 mg Q4H PRN ORAL FEVER 08/03/17 22:00 09/02/17 21:59 Albuterol/ Ipratropium (DuoNeb 0.5-3(2.5)mg/3ml) 3 ml Q4H PRN HHN Shortness of Breath 08/03/17 22:00 08/08/17 21:59 Amlodipine Besylate (Norvasc) 5 mg DAILY ORAL 08/05/17 17:00 09/04/17 16:59 08/06/17 08:30 Aspirin (ASA) 162 mg DAILY ORAL 08/04/17 09:00 09/03/17 08:59 08/06/17 08:28 Atorvastatin Calcium (Lipitor) 20 mg BEDTIME ORAL 08/05/17 21:00 09/04/17 20:59 08/05/17 21:47 Azithromycin (Zithromax) 250 mg DAILY ORAL 08/04/17 18:30 08/11/17 18:29 08/06/17 08:30 Calcium Carbonate (Os-Alcon) 1,250 mg DAILY ORAL 08/05/17 18:00 09/04/17 17:59 08/06/17 08:30 Ceftriaxone Sodium 2 gm/ Dextrose 110 ml @ 220 mls/hr Q24H IVPB 08/04/17 18:30 08/11/17 18:29 08/05/17 17:29 Dextrose (Dextrose 50%) STAT PRN IV Hypoglycemia 08/04/17 21:15 09/03/17 21:14 Diltiazem HCl (Cardizem) 10 mg Q1H PRN IV heart rate more than 120, 08/03/17 22:00 09/02/17 21:59 Enalaprilat (Vasotec) 2.5 mg Q6H PRN IV sbp more than 160 08/03/17 22:00 09/02/17 21:59 Fish Oil (Fish Oil) 1,000 mg BID ORAL 08/05/17 18:00 09/04/17 17:59 08/06/17 08:29 Heparin Sodium (Porcine) (Heparin 5000 units/ml) 5,000 units EVERY 12 HOURS SUBQ 08/04/17 09:00 09/03/17 08:59 08/06/17 08:41 Insulin Aspart (NovoLOG) BEFORE MEALS AND HS SUBQ 08/05/17 22:00 09/04/17 21:59 Ketorolac Tromethamine (Toradol 30mg) 30 mg Q6H PRN IV moderate pain ( 4-6) 08/03/17 22:00 08/08/17 21:59 08/05/17 06:39 Metformin HCl (Glucophage) 500 mg TWICE A DAY ORAL 08/05/17 18:00 09/04/17 17:59 08/06/17 08:29 Morphine Sulfate (Morphine Sulfate) 2 mg Q4H PRN IVP severe Pain (Pain Scale 7-10) 08/03/17 22:00 08/10/17 21:59 Multivitamins (Multivitamins) 1 tab DAILY ORAL 08/05/17 17:00 09/04/17 16:59 08/06/17 08:29 Nitroglycerin (Ntg) 0.4 mg Q5M PRN SL Prn Chest Pain 08/03/17 22:00 09/02/17 21:59 Ondansetron HCl (Zofran) 4 mg Q6H PRN IVP Nausea & Vomiting 08/03/17 22:00 09/02/17 21:59 Patient Own Medication (Patient's Own Med) 1 ea DAILY ORAL 08/05/17 21:30 09/04/17 21:29 08/06/17 08:33 Patient Own Medication (Patient's Own Med) 1 ea DAILY ORAL 08/05/17 21:30 09/04/17 21:29 08/06/17 08:33 Polyethylene Glycol (Miralax) 17 gm DAILYPRN PRN ORAL Constipation 08/03/17 22:00 09/02/17 21:59 Ranitidine HCl (Zantac) 150 mg BEDTIME ORAL 08/05/17 22:00 09/04/17 21:59 Temazepam (Restoril) 15 mg HSPRN PRN ORAL Insomnia 08/03/17 22:00 08/10/17 21:59 Kalyan WalterSamaritan Medical CenterDiya Motley NP Aug 06, 2017 10:30
--- NOTE | 2017-08-06 10:33 | General Progress Note ---
Assessment/Plan Problem List: (1) LBBB (left bundle branch block) ICD Codes: I44.7 - Left bundle-branch block, unspecified SNOMED: 17331332 (2) Chest pain ICD Codes: R07.9 - Chest pain, unspecified SNOMED: 12346772 Qualifiers: Qualified Codes: R07.9 - Chest pain, unspecified (3) GABRIELA (acute kidney injury) ICD Codes: N17.9 - Acute kidney failure, unspecified SNOMED: 65317103 (4) 1st degree AV block ICD Codes: I44.0 - Atrioventricular block, first degree SNOMED: 786590193 (5) Diabetes mellitus ICD Codes: E11.9 - Type 2 diabetes mellitus without complications SNOMED: 04538584 (6) Hypertension ICD Codes: I10 - Essential (primary) hypertension SNOMED: 60079225 (7) Anemia ICD Codes: D64.9 - Anemia, unspecified SNOMED: 529571463 (8) ATN (acute tubular necrosis) ICD Codes: N17.0 - Acute kidney failure with tubular necrosis SNOMED: 37365667 (9) ACS (acute coronary syndrome) ICD Codes: I24.9 - Acute ischemic heart disease, unspecified SNOMED: 151068706 (10) Leukocytosis ICD Codes: D72.829 - Elevated white blood cell count, unspecified SNOMED: 235422081, 137298380 (11) CAP (community acquired pneumonia) ICD Codes: J18.9 - Pneumonia, unspecified organism SNOMED: 414734419 Status: stable, progressing, tolerating diet Assessment/Plan ot pt diet cardio eval cbc bmp am Subjective Constitutional: Reports: weakness Allergies: Coded Allergies: No Known Allergies (Verified Allergy, Unknown, 09/04/07) All Systems: reviewed and negative except above Subjective sleepy in bed Objective Last 24 Hour Vital Signs Date Time Temp Pulse Resp B/P (MAP) Pulse Ox O2 Delivery O2 Flow Rate FiO2 08/06/17 08:30 96 141/59 08/06/17 08:19 96.9 96 20 141/59 93 Room Air 08/06/17 08:00 91 08/06/17 06:30 94 17 Room Air 08/06/17 04:30 97.2 91 22 125/65 95 Nasal Cannula 2.0 08/06/17 04:00 75 08/06/17 00:50 97.2 78 20 134/65 92 Room Air 08/06/17 00:00 78 08/05/17 20:33 97.4 78 20 117/58 93 Room Air 08/05/17 20:00 85 08/05/17 19:24 71 18 Room Air 21 08/05/17 17:25 79 113/57 08/05/17 16:58 79 08/05/17 16:00 97.8 79 21 113/57 91 Room Air 08/05/17 12:00 77 08/05/17 12:00 97.2 77 21 104/58 92 Room Air 08/05/17 10:33 68 Intake and Output 08/06/17 08/07/17 19:00 07:00 Intake Total 250 ml Balance 250 ml Intake Oral 250 ml # Voids 1 Laboratory Tests 08/06/17 06:55: White Blood Count 13.1H, Red Blood Count 4.48L, Hemoglobin 12.8L, Hematocrit 38.9L, Mean Corpuscular Volume 87, Mean Corpuscular Hemoglobin 28.6, Mean Corpuscular Hemoglobin Concent 33.1, Red Cell Distribution Width 12.4, Platelet Count 333, Mean Platelet Volume 8.9, Neutrophils (%) (Auto) 70.9, Lymphocytes (% ) (Auto) 21.7, Monocytes (%) (Auto) 5.5, Eosinophils (%) (Auto) 1.3, Basophils ( %) (Auto) 0.5, Sodium Level 136, Potassium Level 4.7, Chloride Level 98, Carbon Dioxide Level 29, Anion Gap 9, Blood Urea Nitrogen 47H, Creatinine 2.1H, Estimat Glomerular Filtration Rate , Glucose Level 113H, Hemoglobin A1c 7.5H, Calcium Level 10.1 Height (Feet): 5 Height (Inches): 5.00 Weight (Pounds): 169 General Appearance: alert EENT: normal ENT inspection Neck: normal alignment Cardiovascular: normal peripheral pulses, normal rate, regular rhythm Respiratory/Chest: chest wall non-tender, lungs clear, normal breath sounds Abdomen: normal bowel sounds, non tender, soft Extremities: normal inspection Edema: no edema noted Arm (L), no edema noted Arm (R), no edema noted Leg (L), no edema noted Leg (R), no edema noted Pedal (L), no edema noted Pedal (R), no edema noted Generalized Neurologic: responsive, motor weakness Skin: normal pigmentation, warm/dry RYAN ARMAS Aug 06, 2017 10:33
[2017-08-06] MEDS ORDERED: LEVAQUIN500 MG ORAL (11:01)
[2017-08-06 11:32] VITALS: BP 125/62
--- NOTE | 2017-08-06 19:25 | Infectious Diseases Prog Note ---
Assessment/Plan Problems: (1) CAP (community acquired pneumonia) Assessment & Plan: with interstitial infiltrates, improving on ceftriaxon and zithromax empirically , may switch to oral levaquin once he is ready to be discharged for 5-7 days , monitor CXR (2) Leukocytosis Assessment & Plan: suspect due to pneumonia , on ceftriaxon and zithromax, await blood culture (3) Chest pain Assessment & Plan: rule out ACS, cardiology is following (4) GABRIELA (acute kidney injury) Assessment & Plan: rule out dehydration, continue IVF, monitor renal function (5) Diabetes mellitus Assessment & Plan: recommend tight glycemic control, to keep blood glucose, between 80-130 Subjective Constitutional: Reports: no symptoms HEENT: Reports: no symptoms Respiratory: Reports: no symptoms Breasts: Reports: no symptoms Cardiovascular: Reports: no symptoms Gastrointestinal/Abdominal: Reports: no symptoms Genitourinary: Reports: no symptoms Neurologic: Reports: no symptoms Psychiatric: Reports: no symptoms Skin: Reports: no symptoms Endocrine: Reports: no symptoms Hematologic: Reports: no symptoms Musculoskeletal: Reports: no symptoms Allergies: Coded Allergies: No Known Allergies (Verified Allergy, Unknown, 09/04/07) Objective Vital Signs Last 24 Hour Vital Signs Date Time Temp Pulse Resp B/P (MAP) Pulse Ox O2 Delivery O2 Flow Rate FiO2 08/06/17 12:17 97 08/06/17 11:32 96.8 97 20 125/62 93 Room Air 08/06/17 08:30 96 141/59 08/06/17 08:19 96.9 96 20 141/59 93 Room Air 08/06/17 08:00 91 08/06/17 06:30 94 17 Room Air 08/06/17 04:30 97.2 91 22 125/65 95 Nasal Cannula 2.0 08/06/17 04:00 75 08/06/17 00:50 97.2 78 20 134/65 92 Room Air 08/06/17 00:00 78 08/05/17 20:33 97.4 78 20 117/58 93 Room Air 08/05/17 20:00 85 08/05/17 19:24 71 18 Room Air 21 Height (Feet): 5 Height (Inches): 5.00 Weight (Pounds): 169 General Appearance: WD/WN, no acute distress HEENT: normocephalic, atraumatic, anicteric, mucous membranes moist, PERRL, EOMI, pharynx normal, supple, no JVD Respiratory/Chest: chest wall non-tender, lungs clear, normal breath sounds, no respiratory distress, no accessory muscle use Cardiovascular: normal peripheral pulses, normal rate, regular rhythm, no gallop/murmur, no JVD Abdomen: normal bowel sounds, soft, non tender, no organomegaly, non distended , no mass, no scars Genitourinary: normal external genitalia Extremities: no cyanosis, no clubbing Skin: no rash, no lesions, no ulcers Neurologic/Psychiatric: alert, oriented x 3, responsive Lymphatic: no neck adenopathy, no groin adenopathy Laboratory Tests Test 08/06/17 06:55 White Blood Count 13.1 K/UL (4.8-10.8) H Red Blood Count 4.48 M/UL (4.70-6.10) L Hemoglobin 12.8 G/DL (14.2-18.0) L Hematocrit 38.9 % (42.0-52.0) L Mean Corpuscular Volume 87 FL (80-99) Mean Corpuscular Hemoglobin 28.6 PG (27.0-31.0) Mean Corpuscular Hemoglobin Concent 33.1 G/DL (32.0-36.0) Red Cell Distribution Width 12.4 % (11.6-14.8) Platelet Count 333 K/UL (150-450) Mean Platelet Volume 8.9 FL (6.5-10.1) Neutrophils (%) (Auto) 70.9 % (45.0-75.0) Lymphocytes (%) (Auto) 21.7 % (20.0-45.0) Monocytes (%) (Auto) 5.5 % (1.0-10.0) Eosinophils (%) (Auto) 1.3 % (0.0-3.0) Basophils (%) (Auto) 0.5 % (0.0-2.0) Sodium Level 136 MMOL/L (136-145) Potassium Level 4.7 MMOL/L (3.5-5.1) Chloride Level 98 MMOL/L (98-107) Carbon Dioxide Level 29 MMOL/L (21-32) Anion Gap 9 (5-15) Blood Urea Nitrogen 47 mg/dL (7-18) H Creatinine 2.1 MG/DL (0.55-1.30) H Estimat Glomerular Filtration Rate mL/min (>60) Glucose Level 113 MG/DL (74-106) H Hemoglobin A1c 7.5 % (4.3-6.0) H Calcium Level 10.1 MG/DL (8.5-10.1) Madan Harley M.D. Aug 06, 2017 19:25
--- NOTE | 2017-08-07 08:32 | Consultation ---
DATE OF CONSULTATION: 08/06/2017 NEPHROLOGY CONSULTATION CONSULTING PHYSICIAN: Tatiana Milligan MD REFERRING PHYSICIAN: Walter Van DO REASON FOR CONSULTATION: Acute renal failure. HISTORY OF PRESENT ILLNESS: The patient is an 82-year-old male with past medical history significant for history of moderate aortic regurgitation, GI bleeding, hypertension, anemia, diabetes, and left bundle-branch block, unknown baseline creatinine, who presented for emergent treatment at the [facility] complaining of chest pain radiating to the left arm while at rest. The patient has voiced that the pain was worsening with movement. At the time of arrival to the ER, the patient was found to have a creatinine of 1.7, later on creatinine came out to be 2.1 and it was also found to have nellie up to 7.5. The patient subsequently was admitted in the hospital. I was called for the management of renal disease and electrolyte imbalance. PAST MEDICAL HISTORY: Includes: 1. History of hypertension. 2. History of possible chronic kidney disease due to diabetic nephropathy versus hypertensive nephrosclerosis, unknown baseline creatinine. 3. History of anemia. 4. History of diabetes. 5. History of . PAST SURGICAL HISTORY: None. HOME MEDICATIONS: Include: 1. Norvasc 10 mg daily. 2. Atorvastatin 20 mg daily. 3. Calcium carbonate 500 mg p.o. daily. 4. Metformin 500 mg p.o. b.i.d. 5. 1 tablet p.o. daily. 6. 1 tablet p.o. daily. 7. Valsartan and hydrochlorothiazide 160/12.5 mg daily. ALLERGIES: No known drug allergies. SOCIAL HISTORY: Lives alone. There is no history of tobacco, alcohol, or drug use. FAMILY HISTORY: Noncontributory. REVIEW OF SYSTEMS: GENERAL: He denies any weight loss, weight gain, fever, chills, night sweats. HEAD AND NECK: Denies any dysphagia, odynophagia, blurry vision, neck stiffness. PULMONARY: Denies any cough or sputum, shortness of breath or hemoptysis. CARDIOVASCULAR: Complaining of chest pain, increased with movement, possibly due to GERD. with deep palpation. GASTROINTESTINAL: Denies any nausea, vomiting, diarrhea, hematemesis, or hematochezia. GENITOURINARY: Denies any dysuria, frequency, or hematuria. MUSCULOSKELETAL: He is complaining of generalized weakness. Denies any localized weakness or numbness. PHYSICAL EXAMINATION: VITAL SIGNS: Blood pressure 114/69, pulse rate 72, respiratory rate 18. HEAD AND NECK: No JVP. No LAD. No thyromegaly. Extraocular movement intact. Pupils are equally reactive to light and accommodation. LUNGS: Clear to auscultation. CARDIAC: Regular rate, rhythm. S1, S2. No murmur. No rub. ABDOMEN: Soft, nontender, nondistended. EXTREMITIES: No edema. No clubbing. No cyanosis. NEUROLOGIC: Cranial nerves II to XII within normal limits. Upper and lower extremities grossly intact. LABORATORY VALUES: Sodium 136, potassium 4.7, 98 chloride, 29 bicarb, BUN of 27, creatinine of 6.1. Glucose of 113. Calcium of 7.5, . WBC count of 13, hemoglobin of 12.1, hematocrit of 38, platelet count of 238. ASSESSMENT: 1. Acute renal failure due to elevated creatinine syndrome. 2. Acute renal failure. 3. Chronic kidney disease. 4. Diabetic nephropathy. 5. Hypertension. 6. Hypertensive nephrosclerosis. PLAN: For the patient, to obtain a UA, check the random urine protein and creatinine ratio to calculate proteinuria, check the urine sodium and creatinine for fractional excretion of sodium. to evaluate nutritional status. Avoid the use of nephrotoxins. I would like to thank Dr. Walter Van and for allowing me to participate in the care of this patient. Tatiana Milligan M.D. DR: MASHA JOB#: [id number] CC:
--- NOTE | 2017-08-07 09:53 | Diagnostic Imaging Report ---
Indication: Acute renal failure, pain Technique: Grayscale and duplex images of the kidneys, retroperitoneum, and bladder were obtained. Comparison:Abdomen ultrasound dated 09/05/2007 Findings: Right kidney measures 11.4 cm in length. Left kidney measures 10.3 cm in length. Both kidneys demonstrate normal echogenicity. No hydronephrosis. The left kidney demonstrates multiple cysts, largest measuring 4.2 cm diameter. No focal abnormality of the right. Normal inferior vena cava. Bladder is empty. Impression: Negative for hydronephrosis. Incidental finding multiple left renal cysts Empty urinary bladder, patient recently voided
--- NOTE | 2017-08-08 08:07 | Discharge Summary ---
Discharge Summary Hospital Course Date of Admission Aug 03, 2017 at 20:35 Date of Discharge Aug 06, 2017 at 14:30 Admitting Diagnosis chest pain HPI Alejandro Solano is a 82 year old male who was admitted on Aug 03, 2017 at 20: 35 for Chest Pain Hospital Course dc summary [id number] Discharge Medications New Medications: Levofloxacin* (Levaquin*) 500 Mg Tablet 500 MG ORAL DAILY, #5 TAB Continued Medications: Amlodipine Besylate (Norvasc) 5 Mg Tablet 5 MG ORAL DAILY, TAB Atorvastatin Calcium* (Atorvastatin Calcium*) 20 Mg Tablet 20 MG ORAL BEDTIME, TAB Calcium Carbonate (Calci-Chew) 500 Mg Tab.chew 500 MG PO DAILY, TAB Magnesium Oxide (Magnesium) 250 Mg Tablet 250 MG PO DAILY, TAB Metformin Hcl* (Metformin Hcl*) 500 Mg Tablet 500 MG ORAL TWICE A DAY, TAB Multivitamins* (Multivitamins*) 1 Each Tablet 1 TAB ORAL DAILY, TAB 0 Refills Mobile-3 Fatty Acids/Fish Oil (Mobile 3 1,000 Mg Softgel) 1 Each Capsule 1 EACH PO BID, CAP Valsartan/Hydrochlorothiazide 160-12.5MG (Diovan Hct 160-12.5 Mg Tab) 1 Each Tablet 1 TAB ORAL DAILY, TAB Discharge Condition Upon Discharge: stable Discharge Disposition Patient was discharged to Home with services (01) Discharge Diagnoses: Kalyan (Melissa)Diya NP Aug 08, 2017 08:07
--- NOTE | 2017-08-08 23:30 | Discharge Summary 2 SIG ---
DATE OF ADMISSION: 08/03/2017 DATE OF DISCHARGE: 08/06/2017 REASON FOR ADMISSION: 82-year-old male with a history of diabetes and hypertension came to emergency room complaining of the chest pain, felt like chest pressure in the sternal region of his chest for the last four hours with radiation to the back. Vital signs were stable. No respiratory distress. WBC- 13.5. BUN -35 and creatinine- 1.7. EKG showed first-degree AV block with left bundle-branch block. First-degree block and left bundle-branch block were known from before. Aspirin given in the emergency department. Troponin was negative. Chest x-ray unchanged from the last chest x-ray from 2006. The patient was admitted to telemetry floor to rule out acute coronary syndrome. HOSPITAL STAY: The patient was admitted. Cardiology , Pulmonology ID and Nephrology consults were requested. Serial troponin x2 were negative. EKG revealed no acute ischemic changes. Per protocol, the patient was ruled out for acute RI. Staking Press Operator followed. The patient was on aspirin. Lipid panel was stable. Per Cardiology, no need for ischemic workup. Chest pain was noncardiac, likely related to presumed community-acquired pneumonia. The patient declined Echo. Supplemental oxygen and pulmonary toilet were provided as needed. Pulse oximetry was stable on room air. Blood sugar was managed with sliding scale of insulin. The patient was on antibiotics for presumed pneumonia. Infectious Disease doctor closely followed. Hemoglobin and hematocrit remained stable. The patient had a history of GI bleeding, but hemoglobin and hematocrit remained stable. No evidence of GI bleeding. Bartender Helper seen and evaluated the patient. The patient was on the IV fluids. No change in renal parameters likely element of chronic. Per Nephrology, the patient likely have a diabetic nephropathy and hypertensive nephrosclerosis. Renal ultrasound revealed no evidence of hydronephrosis and normal bilateral kidney echogenicity. Recommended to follow up with bilingual manager as outpatient. The patient was stable for discharge home on oral antibiotic as per ID recommendation with home health to followup and follow up with the primary medical doctor. FINAL DIAGNOSES: 1. Noncardiac chest pain. 2. Community-acquired pneumonia. 3. Left bundle-branch block. 4. First-degree atrioventricular block. 5. Acute kidney injury on chronic kidney disease. 6. Hypertensive nephrosclerosis 7. Diabetes mellitus. 8. Diabetic nephropathy 9. Anemia. 10. History of gastrointestinal bleeding. DISCHARGE MEDICATIONS: See medication reconciliation list. DISCHARGE INSTRUCTIONS: The patient was discharged home with [facility] health services. The patient to follow up with the primary medical doctor and healthcare science specialist. Recommended to follow up with the bilingual manager for further workup. Walter Van D.O. Diya WalterPan American HospitalTolu NValeriePValerie DR: DEJUAN JOB#: [id number] CC: [id number]
--- NOTE | 2017-08-15 08:41 | Cardiology Report ---
APPROVED REPORT EKG Measurement Heart [id number] Sinus rhythm with 1st degree AV block Left axis deviation Left bundle branch block Abnormal ECG
== END 2017-08-06 14:30 | disposition home health service (06) | DRG 682 ==
LOC: EMR 19:45 → 2E 20:35 → EDBEDREQ 21:48
DX: N17.9 Acute kidney failure, unspecified (principal); J18.9 Pneumonia, unspecified organism; I48.92 Unspecified atrial flutter; E11.21 Type 2 diabetes mellitus with diabetic nephropathy; E11.22 Type 2 diabetes mellitus with diabetic chronic kidney disease; I47.1 Supraventricular tachycardia; D64.9 Anemia, unspecified; R07.9 Chest pain, unspecified; E87.6 Hypokalemia; I44.7 Left bundle-branch block, unspecified; I44.0 Atrioventricular block, first degree; I12.9 Hypertensive chronic kidney disease with stage 1 through stage 4 chronic kidney disease, or unspecified chronic kidney disease; N18.9 Chronic kidney disease, unspecified; I25.10 Atherosclerotic heart disease of native coronary artery without angina pectoris; I35.1 Nonrheumatic aortic (valve) insufficiency; Z79.84 Long term (current) use of oral hypoglycemic drugs
CPT/HCPCS: 36415; 71010; 76775; 80048; 80053; 80061; 82378; 82550; 82553; 82607; 82746; 82962; 83036; 83540; 83550; 83615; 83880; 84443; 84484; 84550; 85007; 85025; 85044; 85060; 85610; 85651; 85730; 86140; 87324; 93005; 94664; 99285; J1815